=== PATIENT | female | born 1950 | race Caucasian/White ===

== ENCOUNTER 2016-04-17 09:16 | Emergency (ER) | payer BC ==
--- NOTE | 2016-04-17 09:26 | EDM.PDOC ---
ED HPI GENERAL MEDICAL PROBLEM - General Chief Complaint: Gastrointestinal Problem Stated Complaint: abd pain Time Seen by Provider: 04/17/16 09:20 Source of Information: Reports: Patient, Family Abdominal Pain Score (Numeric/FACES): 8 - Related Data Allergies Allergy/AdvReac Type Severity Reaction Status Date / Time ampicillin Allergy Cannot Verified 04/17/16 09:23 Remember hydroxyzine HCl Allergy Cannot Verified 04/17/16 09:23 [From Vistaril] Remember hydroxyzine pamoate Allergy Cannot Verified 04/17/16 09:23 [From Vistaril] Remember promethazine HCl Allergy Cannot Verified 04/17/16 09:23 [From Phenergan] Remember Home Meds: Home Meds Alendronate Sodium [Alendronate] 70 mg PO Q7D 01/23/15 [History] Calcium Carbonate [Calcium] 500 mg PO DAILY 01/23/15 [History] Cholecalciferol (Vitamin D3) [Vitamin D3] 5,000 unit PO DAILY 01/23/15 [History] Cyanocobalamin/FA/Pyridoxine [Folbee] 1 each PO Q48H 01/23/15 [History] Fexofenadine HCl 45 mg PO DAILY 01/23/15 [History] Multivitamin W-Minerals/Lutein [Vision Plus Lutein Vitamin] 1 each PO DAILY 11/28 [History] Multivitamin [Multi-Day Vitamins] 1 each PO DAILY 01/23/15 [History] Omeprazole 20 mg PO ACBRK 01/23/15 [History] Sertraline HCl 100 mg PO DAILY 01/23/15 [History] Past Medical History Gastrointestinal History: Reports: GERD Psychiatric History: Reports: Depression Social & Family History - Family History Cardiac: Reports: Hypertension - Tobacco Use Smoking Status *Q: Never Smoker - Alcohol Use Alcohol Use History: No - Living Situation & Occupation Living situation: Reports: , with family ED ROS GENERAL - Review of Systems Review Of Systems: See Below Constitutional: Reports: fever, chills HEENT: Reports: No symptoms Respiratory: Reports: no symptoms. Denies: shortness of breath, cough Cardiovascular: Reports: No symptoms. Denies: Chest pain Endocrine: Reports: no symptoms GI/Abdominal: Reports: Abdominal pain, Nausea, Vomiting : Reports: no symptoms Musculoskeletal: Reports: no symptoms. Denies: neck pain, back pain Skin: Reports: no symptoms Neurological: Reports: no symptoms Psychiatric: Reports: No symptoms Hematologic/Lymphatic: Reports: no symptoms Immunologic: Reports: no symptoms ED EXAM, GENERAL - Physical Exam Exam: See Below Exam Limited By: No limitations General Appearance: alert, WD/WN, mild distress Ears: normal external exam, normal canal, hearing grossly normal, normal TMs Ear Exam: bilateral ear: auricle normal, canal normal, TM normal Nose: normal inspection, normal mucosa Throat/Mouth: Normal inspection, Normal lips, Normal teeth, Normal oropharynx, Normal voice, No airway compromise Head: atraumatic, normocephalic Neck: normal inspection, supple, non-tender, full range of motion Respiratory/Chest: no respiratory distress, lungs clear, normal breath sounds, no accessory muscle use Cardiovascular: normal peripheral pulses, regular rate, rhythm, no murmur Peripheral Pulses: 2+: radial (L), radial (R) GI/Abdominal: normal bowel sounds, soft, tender (RUQ). No: non tender, rigid Back Exam: normal inspection, full range of motion. No: CVA tenderness (L), CVA tenderness (R) Extremities: normal inspection, normal range of motion, non-tender, no pedal edema, normal capillary refill Neurological: alert, oriented, normal cognition, normal gait, no motor/sensory deficits Psychiatric: normal affect, normal mood Skin Exam: Warm, Dry, Intact, Normal color, No rash Lymphatic: no adenopathy Course - Vital Signs Last Recorded V/S: Last Vital Signs Temp 36.8 C 04/17/16 10:55 Pulse 100 04/17/16 09:16 Resp 16 04/17/16 09:16 BP 138/54 L 04/17/16 09:16 Pulse Ox 95 04/17/16 09:16 - Orders/Labs/Meds Orders: Active Orders 24 hr Category Date Time Status Abdomen 2V AP Flat Upright [CR] Stat Exams 04/17/16 09:27 Taken Abdomen Pelvis w Cont [CT] Stat Exams 04/17/16 10:01 Taken Ertapenem [INVanz] 1 gm Med 04/17/16 13:19 Active Sodium Chloride 0.9% [Normal Saline] 100 ml IV ONETIME Sodium Chloride 0.9% [Normal Saline] 1,000 ml Med 04/17/16 13:30 Active IV ASDIRECTED Medication Orders Ertapenem 1 gm/ Sodium (Chloride) 100 mls @ 100 mls/hr IV ONETIME ONE Stop: 04/17/16 14:18 Sodium Chloride (Normal Saline) 1,000 mls @ 125 mls/hr IV ASDIRECTED [facility] Labs: Laboratory Tests 04/17/16 04/17/16 04/17/16 Range/Units 09:35 09:35 09:35 WBC 15.3 H (5.0-10.0) 10^3/uL RBC 4.56 (4.00-5.50) 10^6/uL Hgb 12.9 (12.0-16.0) g/dL Hct 38.9 (37.0-47.0) % MCV 85.3 (82.0-94.0) fL MCH 28.3 (27.0-32.0) pg MCHC 33.2 (33.0-38.0) g/dL RDW Coeff of Joy 12.8 (11.0-15.0) % Plt Count 170 (150-400) 10^3/uL Neut % (Auto) 87.1 H (35-85) % Lymph % (Auto) 2.4 L (10-55) % [place] % (Auto) 10.4 (0-16) % Eos % (Auto) 0 (0-5) % Baso % (Auto) 0.1 (0-3) % Neut # 13.32 H (1.80-7.00) 10^3/uL Lymph # 0.37 L (1.00-4.80) 10^3/uL [place] # 1.59 H (0.00-0.80) 10^3/uL Eos # 0.00 (0.00-0.45) 10^3/uL Baso # 0.01 10^3/uL Sodium 140 (136-145) mEq/L Potassium 4.1 (3.5-5.0) mEq/L Chloride 102 (98-106) mEq/L Carbon Dioxide 26 (21-32) mmol/L BUN 15 (7-18) mg/dL Creatinine 0.7 (0.6-1.0) mg/dL Est Cr Clr Drug Dosing 67.16 mL/min Estimated GFR (MDRD) > 60 (>=60) mL/min Glucose 202 H D (75-99) mg/dL Lactic Acid 1.6 (0.4-2.0) mmol/L Calcium 8.8 (8.4-10.1) mg/dL Total Bilirubin 1.1 H (0.0-1.0) mg/dL AST 25 (15-37) U/L ALT 34 (12-78) U/L Alkaline Phosphatase 73 (46-116) U/L C-Reactive Protein 0.7 (0.2-0.8) mg/dL Total Protein 7.2 (6.4-8.2) g/dL Albumin 4.1 (3.4-5.0) g/dL Amylase 31 (25-115) U/L Urine Color (YELLOW) Urine Appearance (CLEAR) Urine pH (4.5-8.0) Ur Specific [place] (1.003-1.020) Urine Protein (NEGATIVE) mg/dL Urine Glucose (UA) (NEGATIVE) mg/dL Urine Ketones (NEGATIVE) mg/dL Urine Occult Blood (NEGATIVE) Urine Nitrite (NEGATIVE) Urine Bilirubin (NEGATIVE) Urine Urobilinogen (0.2-1.0) EU/dL Ur Leukocyte Esterase (NEGATIVE) Urine RBC (0-5) /HPF Urine WBC (0-5) /HPF Ur Squamous Epith Cells (NOT SEEN) /HPF Urine Bacteria (NOT SEEN) /HPF Urine Mucus (NOT SEEN) /HPF 04/17/16 Range/Units 10:00 WBC (5.0-10.0) 10^3/uL RBC (4.00-5.50) 10^6/uL Hgb (12.0-16.0) g/dL Hct (37.0-47.0) % MCV (82.0-94.0) fL MCH (27.0-32.0) pg MCHC (33.0-38.0) g/dL RDW Coeff of Joy (11.0-15.0) % Plt Count (150-400) 10^3/uL Neut % (Auto) (35-85) % Lymph % (Auto) (10-55) % [place] % (Auto) (0-16) % Eos % (Auto) (0-5) % Baso % (Auto) (0-3) % Neut # (1.80-7.00) 10^3/uL Lymph # (1.00-4.80) 10^3/uL [place] # (0.00-0.80) 10^3/uL Eos # (0.00-0.45) 10^3/uL Baso # 10^3/uL Sodium (136-145) mEq/L Potassium (3.5-5.0) mEq/L Chloride (98-106) mEq/L Carbon Dioxide (21-32) mmol/L BUN (7-18) mg/dL Creatinine (0.6-1.0) mg/dL Est Cr Clr Drug Dosing mL/min Estimated GFR (MDRD) (>=60) mL/min Glucose (75-99) mg/dL Lactic Acid (0.4-2.0) mmol/L Calcium (8.4-10.1) mg/dL Total Bilirubin (0.0-1.0) mg/dL AST (15-37) U/L ALT (12-78) U/L Alkaline Phosphatase (46-116) U/L C-Reactive Protein (0.2-0.8) mg/dL Total Protein (6.4-8.2) g/dL Albumin (3.4-5.0) g/dL Amylase (25-115) U/L Urine Color Dark yellow (YELLOW) Urine Appearance Clear (CLEAR) Urine pH 7.0 (4.5-8.0) Ur Specific [place] 1.024 H (1.003-1.020) Urine Protein 30 H (NEGATIVE) mg/dL Urine Glucose (UA) Negative (NEGATIVE) mg/dL Urine Ketones Trace H (NEGATIVE) mg/dL Urine Occult Blood Negative (NEGATIVE) Urine Nitrite Negative (NEGATIVE) Urine Bilirubin Negative (NEGATIVE) Urine Urobilinogen 1.0 (0.2-1.0) EU/dL Ur Leukocyte Esterase Negative (NEGATIVE) Urine RBC Not seen (0-5) /HPF Urine WBC 0-5 (0-5) /HPF Ur Squamous Epith Cells Occasional H (NOT SEEN) /HPF Urine Bacteria Occasional H (NOT SEEN) /HPF Urine Mucus Occasional H (NOT SEEN) /HPF Meds: Medications Generic Name Dose Route Start Last Admin Trade Name Freq PRN Reason Stop Dose Admin Ertapenem 1 gm/ Sodium 100 mls @ 100 mls/hr 04/17/16 13:19 Chloride IV 04/17/16 14:18 ONETIME ONE Sodium Chloride 1,000 mls @ 125 mls/hr 04/17/16 13:30 Normal Saline IV ASDIRECTED [facility]O Discontinued Medications Generic Name Dose Route Start Last Admin Trade Name Charu PRN Reason Stop Dose Admin Acetaminophen 650 mg 04/17/16 09:27 04/17/16 10:07 Tylenol PO 04/17/16 09:28 650 mg NOW ONE Administration Iopamidol 100 ml 04/17/16 10:20 04/17/16 12:31 Isovue-300 (61%) IVPUSH 04/17/16 10:21 100 ml ONETIME ONE Administration Ondansetron HCl 4 mg 04/17/16 09:30 04/17/16 10:09 Zofran IVPUSH 04/17/16 09:31 4 mg ONETIME ONE Administration Pantoprazole Sodium 40 mg 04/17/16 09:30 04/17/16 10:10 Protonix Iv IVPUSH 04/17/16 09:31 40 mg ONETIME ONE Administration - Radiology Interpretation Free Text/Narrative:: CT shows acute GB, see radiology reading for details Departure - Departure Time of Disposition: 13:30 Disposition: DC/Tfer to Acute Hospital 02 Condition: good Clinical Impression: Cholecystitis, acute, Fever Referrals: Britney Tolliver PA-C [Primary Care Provider] - Forms: Interfacility Transfer [facility] ED Communication - ED Communication Date/Time Date: 04/17/16 Time Called: 13:18 - Discussed Case With (1) Discussed Case With (1): Admitting Provider Person/s Notified (1): Dr. Gaming (Surgeon) - Conversation Summary Admitting Provider Agreed to Patient's Admission: Yes Summary Comment: spoke with Dr. Gaming the surgeon communication instructor and he agrees to accept the pt for admission - Problem List & Annotations (1) Cholecystitis, acute SNOMED Code(s): 04392034 Code(s): K81.0 - ACUTE CHOLECYSTITIS Status: Acute Priority: High Current Visit: Yes Onset Date: ~04/17/16 (2) Fever SNOMED Code(s): 740419056 Code(s): R50.9 - FEVER, UNSPECIFIED Status: Acute Priority: High Current Visit: Yes Onset Date: ~04/17/16 Qualifiers: Fever type: unspecified Qualified Code(s): R50.9 - Fever, unspecified - Problem List Review Problem List Initiated/Reviewed/Updated: Yes - My Orders Last 24 Hours: My Active Orders 04/17/16 09:27 Abdomen 2V AP Flat Upright [CR] Stat 04/17/16 10:01 Abdomen Pelvis w Cont [CT] Stat 04/17/16 13:19 Ertapenem [INVanz] 1 gm Sodium Chloride 0.9% [Normal Saline] 100 ml IV ONETIME 04/17/16 13:30 Sodium Chloride 0.9% [Normal Saline] 1,000 ml IV ASDIRECTED - Assessment/Plan Last 24 Hours: My Active Orders 04/17/16 09:27 Abdomen 2V AP Flat Upright [CR] Stat 04/17/16 10:01 Abdomen Pelvis w Cont [CT] Stat 04/17/16 13:19 Ertapenem [INVanz] 1 gm Sodium Chloride 0.9% [Normal Saline] 100 ml IV ONETIME 04/17/16 13:30 Sodium Chloride 0.9% [Normal Saline] 1,000 ml IV ASDIRECTED Plan: the pt will benefit the transfer as hs will be seen and treated by a surgeon who is not available at this facility today. risk are MVC and deterioration in condition
[2016-04-17] MEDS ORDERED: Acetaminophen 325 MG Tab PO ONE (09:27)
[2016-04-17] MEDS ORDERED: Pantoprazole 40 MG Vial IVPUSH ONE (09:30)
[2016-04-17] MEDS ORDERED: Ondansetron 4 MG/2 ML SDV IVPUSH ONE (09:30)
[2016-04-17 09:53] LABS: CHLORIDE,CL 102 mEq/L (98-106); SODIUM,NA 140 mEq/L (136-145)
[2016-04-17] MEDS ORDERED: Iopamidol 612 MG/ML 100 ML Bottle IVPUSH ONE (10:20)
[2016-04-17] MEDS ORDERED: Ertapenem 1 GM in Sodium Chloride 0.9% 100 ML IV ONE (13:19)
[2016-04-17] MEDS ORDERED: Sodium Chloride 0.9% 1,000 ML IV SCH (13:30)
[2016-04-17] MEDS ORDERED: Morphine 4 MG/ML Syringe IVPUSH ONE (13:51)
[2016-04-17 14:12] VITALS: BP 116/77
[2016-04-17] MEDS ORDERED: Sodium Chloride 0.9% 100 ML ONE (14:12)
== END 2016-04-17 14:35 ==
LOC: CC.ED 09:16
DX: K81.0 Acute cholecystitis (principal); K21.9 Gastro-esophageal reflux disease without esophagitis; F32.9 Major depressive disorder, single episode, unspecified; Z88.1 Allergy status to other antibiotic agents; Z88.8 Allergy status to other drugs, medicaments and biological substances; Z79.899 Other long term (current) drug therapy
CPT/HCPCS: 36415; 74020; 74177; 80053; 81001; 82150; 83605; 85025; 86140; 96365; 96375; 99285; A9270; C9113; J1335; J2270; J2405; J7030; J7050; Q9967; 96368